=== PATIENT | female | born 1955 | race Caucasian/White ===

== ENCOUNTER 2017-08-13 12:42 | Inpatient (IN) | payer MEDICARE ==
[~2017-08-13] VITALS: Ht 165.1 cm; Wt 151.6 kg
[~2017-08-13 12:42] MED LIST: HYDR-3535 PO; PRED20 PO; [UNRECOGNIZED DRUG - CODE] TOP
[2017-08-13 12:44] VITALS: BP 186/127; PULSE 92; RESP 22; TEMP 102.9; O2SAT 96
[2017-08-13] MEDS ORDERED: SODIUM CHLOR 0.9% 1000 ML INJ 1,000 ML IV ONE ×3 (13:00)
[2017-08-13] MEDS ORDERED: ACETAMINOPHEN 325 MG TAB PO ONE (13:00)
--- NOTE | 2017-08-13 13:29 | PD ---
HPI Chief Complaint: Skin Problem Time Seen by Provider: 12:59 Travel History International Travel<30 days: No Contact w/Intl Traveler<30days: No Traveled to known affect area: No History of Present Illness HPI 62 YO F with PMH of dementia, left ankle fracture, cellulitis of LLE presents to the ED for evaluation of redness, swelling and pain of the ankle. Uncertain onset. Patient states that she is ambulatory on the leg. She denies CP, palpitations, SOB, N/V, changes in bowel habits. Daughter is at bedside and helps to provide the history. Daughter states that the patient became febrile this morning. The patients daughter states that the patient saw a new primary care provider yesterday and was ordered to have an outpatient US. Daughter states that she is the patient's POA. PFSH Past Medical History Cancer: No Diminished Hearing: No Endocrine: No GERD: Yes Genitourinary: Yes (UTI) Immune Disorder: No Kidney Stones: Yes Musculoskeletal: Yes (CARPAL TUNNEL) Neurologic: No Psychiatric: No Reproductive: No Respiratory: Yes Pneumonia: Yes Sleep Apnea: Yes (CPAP) ?: Not Menopausal: Yes : 2 Para: 2 Miscarriage: 0 : 0 Past Surgical History Tonsillectomy: Yes Other Surgery: Yes Social History Alcohol Use: No Tobacco Use: Yes Substance Use: No Allergies-Medications (Allergen,Severity, Reaction): Coded Allergies: codeine (Unverified Allergy, Severe, RASH, 08/13/17) sulfamethoxazole (Unverified Allergy, Severe, Itching, 08/13/17) ITCHING, REDNESS, VOICE CHANGES, LIP SWELLING trimethoprim (Unverified Allergy, Severe, Itching, 08/13/17) ITCHING, REDNESS, VOICE CHANGES, LIP SWELLING penicillin G (Unverified Allergy, Mild, RASH, 08/13/17) Reported Meds & Prescriptions Reported Meds & Active Scripts Active Reported Aricept (Donepezil) 23 Mg Tab 23 Mg PO HS Do not split, crushed or chewed. Namenda (Memantine) 5 Mg Tab 5 Mg PO HS Vitamin B-12 (Cyanocobalamin) 1,000 Mcg Tab 1,000 Mcg PO DAILY Multiple Vitamin 1 Tab 1 Tab PO DAILY Review of Systems Except as stated in HPI: all other systems reviewed are Neg Physical Exam Narrative GENERAL: Morbidly obese, anxious, tearful white female in no acute distress. SKIN: Focused skin assessment warm/dry. There is an indurated area in the right wrist which measures about 2 cm in diameter. No fluctuance. No pointing or drainage. There is a zone of inflammation around it but no lymphangitis. HEAD: Normocephalic. EYES: No scleral icterus. No injection or drainage. NECK: Supple, trachea midline. No JVD or lymphadenopathy. CARDIOVASCULAR: Regular rate and rhythm without murmurs, gallops, or rubs. RESPIRATORY: Breath sounds equal bilaterally. No accessory muscle use. GASTROINTESTINAL: Abdomen soft, non-tender, nondistended. Active bowel sounds. MUSCULOSKELETAL: No cyanosis, or edema. FOCUSED LEFT LOWER EXTREMITY EXAM: 2+ DP pulse. Tender, warm erythema and edema of the lateral malleolus. Patient is able to wiggle the toes, and station intact light touch distally. BACK: Nontender without obvious deformity. No CVA tenderness. Data Data Last Documented VS Vital Signs Date Time Temp Pulse Resp B/P (MAP) Pulse Ox O2 Delivery O2 Flow Rate FiO2 08/13/17 13:40 97 Room Air 08/13/17 12:44 102.9 92 22 Orders Orders Sepsis Workup Initiated (08/13/17 ) Complete Blood Count With Diff (08/13/17 13:00) Comprehensive Metabolic Panel (08/13/17 13:00) Prothrombin Time / Inr (Pt) (08/13/17 13:00) Act Partial Throm Time (Ptt) (08/13/17 13:00) Lactic Acid Sepsis Protocol (08/13/17 13:00) Urinalysis - C+S If Indicated (08/13/17 13:00) Blood Culture (08/13/17 13:00) Wound Culture And Gram Stain (08/13/17 13:00) Chest, Single Ap (08/13/17 13:00) Blood Glucose (08/13/17 13:00) Ecg Monitoring (08/13/17 13:00) Iv Access Insert/Monitor (08/13/17 13:00) Oximetry (08/13/17 13:00) Oxygen Administration (08/13/17 13:00) Acetaminophen (Tylenol) (08/13/17 13:00) Sodium Chlor 0.9% 1000 Ml Inj (Ns 1000 M (08/13/17 13:00) Sodium Chlor 0.9% 1000 Ml Inj (Ns 1000 M (08/13/17 13:00) Sodium Chlor 0.9% 1000 Ml Inj (Ns 1000 M (08/13/17 13:00) Ankle, Complete (Glf7gpx) (08/13/17 13:17) Lorazepam Inj (Ativan Inj) (08/13/17 13:30) Vancomycin Inj (Vancomycin Inj) (08/13/17 13:50) Aztreonam Inj (Azactam Inj) (08/13/17 13:50) Metronidazole 500 Mg Inj (Flagyl 500 Mg (08/13/17 13:50) ^ Straight Catheter (08/13/17 14:28) Cath For Specimen (08/13/17 14:28) Us Leg Venous Doppler (08/13/17 14:43) Admit Order (Ed Use Only) (08/13/17 14:43) Labs Laboratory Tests Test 08/13/17 13:12 White Blood Count 15.0 TH/MM3 Red Blood Count 4.75 MIL/MM3 Hemoglobin 13.8 GM/DL Hematocrit 41.4 % Mean Corpuscular Volume 87.1 FL Mean Corpuscular Hemoglobin 29.1 PG Mean Corpuscular Hemoglobin Concent 33.4 % Red Cell Distribution Width 14.5 % Platelet Count 187 TH/MM3 Mean Platelet Volume 8.6 FL Neutrophils (%) (Auto) 83.2 % Lymphocytes (%) (Auto) 8.3 % Monocytes (%) (Auto) 7.2 % Eosinophils (%) (Auto) 0.9 % Basophils (%) (Auto) 0.4 % Neutrophils # (Auto) 12.5 TH/MM3 Lymphocytes # (Auto) 1.2 TH/MM3 Monocytes # (Auto) 1.1 TH/MM3 Eosinophils # (Auto) 0.1 TH/MM3 Basophils # (Auto) 0.1 TH/MM3 CBC Comment DIFF FINAL Differential Comment Prothrombin Time 9.7 SEC Prothromb Time International Ratio 1.0 RATIO Activated Partial Thromboplast Time 24.9 SEC Blood Urea Nitrogen 16 MG/DL Creatinine 0.81 MG/DL Random Glucose 117 MG/DL Total Protein 7.0 GM/DL Albumin 3.1 GM/DL Calcium Level 9.0 MG/DL Alkaline Phosphatase 81 U/L Aspartate Amino Transf (AST/SGOT) 14 U/L Alanine Aminotransferase (ALT/SGPT) 15 U/L Total Bilirubin 0.3 MG/DL Sodium Level 139 MEQ/L Potassium Level 4.1 MEQ/L Chloride Level 104 MEQ/L Carbon Dioxide Level 29.6 MEQ/L Anion Gap 5 MEQ/L Estimat Glomerular Filtration Rate 72 ML/MIN Lactic Acid Level 1.0 mmol/L [facility] Medical Decision Making Medical Screen Exam Complete: Yes Emergency Medical Condition: Yes Differential Diagnosis cellulitis versus osteomyelitis versus sepsis versus other Narrative Course 62 YO F with PMH of dementia, left ankle fracture, cellulitis of LLE presents to the ED for evaluation of redness, swelling and pain of the left lateral ankle. Uncertain onset. Patient is ambulatory on the leg. Daughter states that the patient became febrile this morning. The patients daughter states that the patient saw a new PCP yesterday and was ordered to have an outpatient US. Daughter states that she is the patient's POA. Temp 102.9. Pulse 92, BP 186/ 127, respiratory rate 22, O2 sats 96% on room air on presentation. Physical exam reveals a morbidly obese, anxious, tearful white female in NAD. There are cellulitic changes of the lateral malleolus of the left ankle. No fluctuance. Exam otherwise unremarkable. IV was established. Sepsis workup and fluid resuscitation was initiated. Patient was administered 2mg Ativan IV. 08/13/17 13:12 Total Protein 7.0, Albumin 3.1 L, Calcium Level 9.0, Alkaline Phosphatase 81, Aspartate Amino Transf (AST/SGOT) 14 L, Alanine Aminotransferase (ALT/SGPT) 15, Total Bilirubin 0.3 Lactic Acid: 1.0 UA: pending CXR: normal per radiology read. Ankle XR: Nonspecific soft tissue swelling around the ankle. Evidence of previous internal fracture with hardware intact. No evidence of bony erosion or destruction to indicate osteomyelitis. Ultrasound left lower extremity: At the DVT. No significant change compared to prior study per radiology read. Blood cultures were drawn. Patient was administered aztreonam, vancomycin, Flagyl. Discussed the workup with the patient's daughter. She is agreeable to admission. I spoke with Dr. Haji who agrees to accept the patient to medicine service. Please see medicine notes for disposition. Sepsis Criteria SIRS Criteria (2 or more): Temp > 100.9 or < 96.8, Heart rate over 90 Sepsis Criteria (SIRS+source): Infect source susp/known Gina Huerta Aug 13, 2017 13:29
[2017-08-13] MEDS ORDERED: LORazepam 2 MG/ML VIAL IV PUSH ONE (13:30)
[2017-08-13 13:40] VITALS: O2SAT 97
--- NOTE | 2017-08-13 13:43 | RADRPT ---
EXAM DATE/TIME: 08/13/2017 13:17 [facility] COMPARISON: No previous studies available for comparison. INDICATIONS : Fever. MEDICAL HISTORY : None. SURGICAL HISTORY : Ankle surgury. ENCOUNTER: Initial ACUITY: 1 day PAIN SCORE: 0/10 LOCATION: Bilateral chest FINDINGS: A single view of the chest demonstrates the lungs to be symmetrically aerated without evidence of mas s, infiltrate or effusion. The cardiomediastinal contours are unremarkable. Osseous structures are intact. CONCLUSION: Normal examination. Yasmany Christianson MD on August 13, 2017 at 13:42 Board Certified Radiologist. This report was verified electronically.
[2017-08-13] MEDS ORDERED: ARIC23TA PO (13:46)
[2017-08-13] MEDS ORDERED: MULTTAB67 PO (13:46)
[2017-08-13] MEDS ORDERED: VITA10002 PO (13:46)
[2017-08-13] MEDS ORDERED: NAME5TAB2 PO (13:46)
[2017-08-13 13:47] LABS: AUTOMATED NEUTROPHIL # 12.5 TH/MM3 (1.8-7.7); BASOPHIL # 0.1 TH/MM3 (0-0.2); BASOPHIL % 0.4 % (0.0-2.0); EOSINOPHIL # 0.1 TH/MM3 (0-0.4); EOSINOPHIL % 0.9 % (0.0-4.0); HEMATOCRIT 41.4 % (35.0-46.0); HEMOGLOBIN 13.8 GM/DL (11.6-15.3); LYMPH % 8.3 % (9.0-44.0); LYMPHOCYTE # 1.2 TH/MM3 (1.0-4.8); MEAN CELL VOLUME 87.1 FL (80.0-100.0); MEAN CORPUSCULAR HEMOGLOBIN 29.1 PG (27.0-34.0); MEAN CORPUSCULAR HGB CONC 33.4 % (32.0-36.0); MEAN PLATELET VOLUME 8.6 FL (7.0-11.0); MONO % 7.2 % (0.0-8.0); MONOCYTE # 1.1 TH/MM3 (0-0.9); NEUT % 83.2 % (16.0-70.0); PLATELET COUNT 187 TH/MM3 (150-450); RED BLOOD COUNT 4.75 MIL/MM3 (4.00-5.30); RED CELL DISTRIBUTION WIDTH 14.5 % (11.6-17.2)
--- NOTE | 2017-08-13 13:48 | RADRPT ---
EXAM DATE/TIME: 08/13/2017 13:26 [facility] COMPARISON: No previous studies available for comparison. INDICATIONS : Pain. MEDICAL HISTORY : None. SURGICAL HISTORY : Ankle surgery. ENCOUNTER: Initial ACUITY: 1 month PAIN SCORE: 10/10 LOCATION: Left Ankle. FINDINGS: Three view exam was performed of the left ankle. Patient status post previous internal fixation of th e distal fibula and medial malleolus. Hardware is intact. There is nonspecific soft tissue swelling a round the ankle. There is no evidence of any bony erosion or destruction to indicate osteomyelitis. T here is good alignment at the mortise joint. There are primary degenerative changes. There is a promi nent heel spur on the plantar surface of the calcaneus. There is no evidence of any subcutaneous emph ysema.. CONCLUSION: 1. Nonspecific soft tissue swelling around the ankle. 2. Evidence of previous internal fixation with hardware intact. 3. No evidence of bony erosion or destruction to indicate osteomyelitis. Drew Echeverria MD on August 13, 2017 at 13:45 Board Certified Radiologist. This report was verified electronically.
[2017-08-13] MEDS ORDERED: AZTREONAM INJ 2,000 MG in SODIUM CHLORIDE 0.9% INJ 100 ML IV STA (13:50)
[2017-08-13] MEDS ORDERED: metroNIDAZOLE 500 MG INJ 100 ML IV STA (13:50)
[2017-08-13] MEDS ORDERED: VANCOMYCIN INJ 1,000 MG in SODIUM CHLOR 0.9% 250 ML INJ 250 ML IV STA (13:50)
[2017-08-13 14:01] LABS: ALBUMIN 3.1 GM/DL (3.4-5.0); AST (GOT) 14 U/L (15-37); BICARBONATE 29.6 MEQ/L (21.0-32.0); BLOOD UREA NITROGEN 16 MG/DL (7-18); CHLORIDE 104 MEQ/L (98-107); CREATININE 0.81 MG/DL (0.50-1.00); GLOMERULAR FILTRATION RATE 72 ML/MIN (>89); GLUCOSE,RANDOM 117 MG/DL (74-106); SODIUM (NA) 139 MEQ/L (136-145)
[2017-08-13 14:02] LABS: PROTHROMBIN TIME - PATIENT 9.7 SEC (9.8-11.6)
[2017-08-13 14:04] LABS: ALKALINE PHOSPHATASE 81 U/L (45-117); ALT (GPT) 15 U/L (10-53); TOTAL BILIRUBIN ADULT 0.3 MG/DL (0.2-1.0)
--- NOTE | 2017-08-13 14:41 | HHI.HP ---
[facility] Primary Care Physician Gaby Moreno M.D. Admission Diagnosis Left ankle cellulitis. Diagnoses: Chief Complaint: Left ankle swelling, pain, redness. Travel History International Travel<30 Days: No Contact w/Intl Traveler <30 Da: No Traveled to Known Affected Are: No Sepsis Criteria SIRS Criteria (2 or more): Temp > 100.9 or < 96.8, Heart rate over 90, RR > 20 or PaCO2 < 32, WBC > 08765, < 4000 or > 10% bands Sepsis Criteria (SIRS+source): Infect source susp/known Severe Sepsis (+one): Lactate >2 Criteria Outcome: Meets SIRS criteria, Meets sepsis criteria, Meets severe sepsis criteria History of Present Illness History is obtained from patient's daughter who is also POA. Ms. Briscoe is a 62 year old female with a history of left ankle surgery, dementia who presented to the ED on 08/13/2017 due to erythema, swelling, pain that started getting worse since this morning. She underwent left ankle surgery with some hardware placement back in January 2017. She returned home after rehab. Approximately two months prior to this admission, she had some swelling and erythema of her left ankle. She went to an outside hospital where she received abx. However, she did not tolerate her abx well and thus her symptoms never really resolved. She went to PCP who recommended that an ultrasound study is done before considering abx. Patient's daughter does not know the result of the ultrasound study. However, this morning, patient's left ankle was more painful, erythematous which led to this admission. Patient is not able to participate in the interview in any meaningful way due to dementia. However, she denies any chest pain, cough, abdominal pain, SOB. She denies any changes in bowel or bladder habits. On arrival, BP 186/127, HR 92, RR 22, Temp 102.9F, Pulse ox 96% on room air. WBC 15.0K, Lactic acid 1.0 and repeat 2.8 and subsequently 1.4. Patient received Aztreonam, Vancomycin and Flagyl in the ED. Patient has allergy to PCN - however, extent of allergy is not known. Review of Systems ROS Limitations: Clinical Condition, Poor Historian Endocrine: DENIES: Heat/cold intolerance Except as stated in HPI: all other systems reviewed are Neg Past Family Social History Past Medical History Dementia Left ankle fracture Past Surgical History Internal fixation of left ankle Carpal tunnel surgery Tonsillectomy. Reported Medications Aricept (Donepezil) 23 Mg Tab 23 Mg PO HS Do not split, crushed or chewed. Namenda (Memantine) 5 Mg Tab 5 Mg PO HS Vitamin B-12 (Cyanocobalamin) 1,000 Mcg Tab 1,000 Mcg PO DAILY Multiple Vitamin 1 Tab 1 Tab PO DAILY Allergies: Coded Allergies: codeine (Unverified Allergy, Severe, RASH, 08/13/17) sulfamethoxazole (Unverified Allergy, Severe, Itching, 08/13/17) ITCHING, REDNESS, VOICE CHANGES, LIP SWELLING trimethoprim (Unverified Allergy, Severe, Itching, 08/13/17) ITCHING, REDNESS, VOICE CHANGES, LIP SWELLING penicillin G (Unverified Allergy, Mild, RASH, 08/13/17) Family History Mother - Alzheimer's. Social History Quit smoking in January 2017. Does not drink alcohol or use any illicit drugs. Physical Exam Vital Signs Vital Signs Date Time Temp Pulse Resp B/P (MAP) Pulse Ox O2 Delivery O2 Flow Rate FiO2 08/13/17 13:40 97 Room Air 08/13/17 12:44 102.9 92 22 186/127 (146) 96 Physical Exam GENERAL: Alert, significant dementia, NAD. Morbidly obese. SKIN: No rashes, ecchymoses or lesions. Warm and dry. HEAD: Atraumatic. Normocephalic. No temporal or scalp tenderness. EYES: Pupils equal round and reactive. No injection or drainage. ENT: Nose without bleeding, purulent drainage or septal hematoma. Airway patent. NECK: Trachea midline. No lymphadenopathy. Supple, nontender, no meningeal signs. CARDIOVASCULAR: Regular rate and rhythm without murmurs, gallops, or rubs. No JVD. RESPIRATORY: Clear to auscultation. Breath sounds equal bilaterally. No wheezes , rales, or rhonchi. GASTROINTESTINAL: Abdomen soft, non-tender, nondistended. No guarding. MUSCULOSKELETAL: Extremities without clubbing, cyanosis. Left ankle erythema, swelling noted. Right forearm has a small abscess as well. NEUROLOGICAL: Awake and alert. Cranial nerves II through XII intact. No focal neurological deficits. Normal speech. Laboratory Laboratory Tests Test 08/13/17 13:12 White Blood Count 15.0 Red Blood Count 4.75 Hemoglobin 13.8 Hematocrit 41.4 Mean Corpuscular Volume 87.1 Mean Corpuscular Hemoglobin 29.1 Mean Corpuscular Hemoglobin Concent 33.4 Red Cell Distribution Width 14.5 Platelet Count 187 Mean Platelet Volume 8.6 Neutrophils (%) (Auto) 83.2 Lymphocytes (%) (Auto) 8.3 Monocytes (%) (Auto) 7.2 Eosinophils (%) (Auto) 0.9 Basophils (%) (Auto) 0.4 Neutrophils # (Auto) 12.5 Lymphocytes # (Auto) 1.2 Monocytes # (Auto) 1.1 Eosinophils # (Auto) 0.1 Basophils # (Auto) 0.1 CBC Comment DIFF FINAL Differential Comment Prothrombin Time 9.7 Prothromb Time International Ratio 1.0 Activated Partial Thromboplast Time 24.9 Blood Urea Nitrogen 16 Creatinine 0.81 Random Glucose 117 Total Protein 7.0 Albumin 3.1 Calcium Level 9.0 Alkaline Phosphatase 81 Aspartate Amino Transf (AST/SGOT) 14 Alanine Aminotransferase (ALT/SGPT) 15 Total Bilirubin 0.3 Sodium Level 139 Potassium Level 4.1 Chloride Level 104 Carbon Dioxide Level 29.6 Anion Gap 5 Estimat Glomerular Filtration Rate 72 Lactic Acid Level 1.0 Date/Time Source Procedure Growth Status 08/13/17 13:12 Blood Peripheral Aerobic Blood Culture Pending Received 08/13/17 13:12 Blood Peripheral Anaerobic Blood Culture Pending Received 08/13/17 13:00 Wound Leg Gram Stain Pending Received 08/13/17 13:00 Wound Leg Wound Culture Pending Received Result Diagram: 08/13/17 1312 08/13/17 1312 Imaging CXR, Left lower ext doppler negative. Left ankle xray shows swelling around ankle. Caprini VTE Risk Assessment Caprini VTE Risk Assessment: Mod/High Risk (score >= 2) Caprini Risk Assessment Model Point Value = 1 Point Value = 2 Point Value = 3 Point Value = 5 Age 41-60 Minor surgery BMI > 25 kg/m2 Swollen legs Varicose veins or History of unexplained or recurrent spontaneous Oral contraceptives or hormone replacement Sepsis (< 1 month) Serious lung disease, including pneumonia (< 1 month) Abnormal pulmonary function Acute myocardial infarction Congestive heart failure (< 1 month) History of inflammatory bowel disease Medical patient at bed rest Age 61-74 Arthroscopic surgery Major open surgery (> 45 min) Laparoscopic surgery (> 45 min) Malignancy Confined to bed (> 72 hours) Immobilizing plaster cast Central venous access Age >= 75 History of VTE Family history of VTE Factor V Leiden Prothrombin [id number] Lupus anticoagulant Anticardiolipin antibodies Elevated serum homocysteine Heparin-induced thrombocytopenia Other congenital or acquired thrombophilia Stroke (< 1 month) Elective arthroplasty Hip, pelvis, or leg fracture Acute spinal cord injury (< 1 month) Prophylaxis Regimen Total Risk Factor Score Risk Level Prophylaxis Regimen 0-1 Low Early ambulation 2 Moderate Order ONE of the following: *Sequential Compression Device (SCD) *Heparin 5000 units SQ BID 3-4 Higher Order ONE of the following medications: *Heparin 5000 units SQ TID *Enoxaparin/Lovenox 40 mg SQ daily (WT < 150 kg, CrCl > 30 mL/min) *Enoxaparin/Lovenox 30 mg SQ daily (WT < 150 kg, CrCl > 10-29 mL/min) *Enoxaparin/Lovenox 30 mg SQ BID (WT < 150 kg, CrCl > 30 mL/min) AND/OR *Sequential Compression Device (SCD) 5 or more Highest Order ONE of the following medications: *Heparin 5000 units SQ TID (Preferred with Epidurals) *Enoxaparin/Lovenox 40 mg SQ daily (WT < 150 kg, CrCl > 30 mL/min) *Enoxaparin/Lovenox 30 mg SQ daily (WT < 150 kg, CrCl > 10-29 mL/min) *Enoxaparin/Lovenox 30 mg SQ BID (WT < 150 kg, CrCl > 30 mL/min) AND *Sequential Compression Device (SCD) Assessment and Plan Problem List: (1) Severe sepsis ICD Code: A41.9 - Sepsis, unspecified organism; R65.20 - Severe sepsis without septic shock (2) Left leg cellulitis ICD Code: L03.116 - Cellulitis of left lower limb (3) Dementia ICD Code: F03.90 - Unspecified dementia without behavioral disturbance (4) Skin abscess ICD Code: L02.91 - Cutaneous abscess, unspecified Assessment and Plan Ms. Briscoe is a 62 year old female with a history of dementia, previous left ankle surgery who is admitted to the hospital on 08/13/2017 due to left lower extremity cellulitis and severe sepsis. - Severe sepsis (WBC 15.0K, HR 92, RR 22, Temp 102.9, known infection cellulitis , Lactic acid 2.8). - Left lower extremity cellulitis - Right forearm skin abscess - Patient received Aztreonam, Vancomycin and Flagyl in the ED. - Will continue patient on Aztreonam and Vancomycin. Pt or daughter is unable to specify extent of PCN allergy. - Lactic acid 1.0 --> 2.8 --> 1.4. - Will repeat BMP, CBC in the AM. Blood cx pending. - Radiological studies reviewed. Ankle x-ray shows swelling. - Dementia - Will continue home medications - Aricept, Namenda. Full code. Lovenox. Physician Certification 2 Midnight Certification Type: Admission for Inpatient Services Order for Inpatient Services The services are ordered in accordance with Medicare regulations or non- Medicare payer requirements, as applicable. In the case of services not specified as inpatient-only, they are appropriately provided as inpatient services in accordance with the 2-midnight benchmark. Estimated LOS (days): 2 days is the estimated time the patient will need to remain in the hospital, assuming treatment plan goals are met and no additional complications. Post-Hospital Plan: Home Victoria Haji DO Aug 13, 2017 14:41
[2017-08-13] MEDS ORDERED: MAGNESIUM HYDROXIDE SUSP 30 ML CUP PO PRN (14:45)
[2017-08-13] MEDS ORDERED: SODIUM CHLORIDE 0.9% FLUSH 10 ML FLUSH IV FLUSH PRN (14:45)
[2017-08-13] MEDS ORDERED: LACTULOSE SYRUP 20 GM/30 ML CUP PO PRN (14:45)
[2017-08-13] MEDS ORDERED: NALOXONE HCL 0.4 MG/ML AMP IV PUSH PRN (14:45)
[2017-08-13] MEDS ORDERED: BISACODYL 10 MG SUPP RECTAL PRN (14:45)
[2017-08-13] MEDS ORDERED: ONDANSETRON HCL 4 MG/2 ML VIAL IVP PRN (14:45)
[2017-08-13] MEDS ORDERED: SENNOSIDES 8.6 MG TAB PO PRN (14:45)
[2017-08-13 15:27] VITALS: BP 124/53; PULSE 84; RESP 18; TEMP 97.9; O2SAT 97
--- NOTE | 2017-08-13 15:37 | RADRPT ---
EXAM DATE/TIME: 08/13/2017 15:16 [facility] COMPARISON: US LEG LEFT VENOUS DOPPLER, April 08, 2009, 17:02. INDICATIONS : Left leg swelling. MEDICAL HISTORY : Gastroesophageal reflux disease. Pneumonia. Sleep apnea. Kidney stones. Urinary tract infection. SURGICAL HISTORY : Tonsillectomy. Carpal tunnel syndrome. ENCOUNTER: Subsequent ACUITY: 1 day PAIN SCORE: 4/10 LOCATION: Left leg. TECHNIQUE: Venous ultrasound of the leg was performed from the inguinal ligament to the proximal calf. Real-john e, color Doppler and spectral tracing, compression and augmentation techniques were used. FINDINGS: There is normal compressibility of the deep venous system from the inguinal region to the proximal ca lf. No echogenic clot is seen in the lumen of the common femoral, femoral, popliteal, and posterior tibial veins. There is a normal response of the venous system to proximal and distal augmentation an d respiration. CONCLUSION: No evidence of DVT. No significant change compared to the prior study. Drew Echeverria MD on August 13, 2017 at 15:36 Board Certified Radiologist. This report was verified electronically.
[2017-08-13 16:00] VITALS: BP_SYST 140; BP_SYST 153; BP_DIAS 113; BP_DIAS 80; PULSE 90; RESP 18; TEMP 97.1; O2SAT 97
[2017-08-13] MEDS: ENOXAPARIN SODIUM 40 MG/0.4 ML SYRINGE SQ SCH (17:18)
[2017-08-13] MEDS ORDERED: Vancomycin Consult Pharmacy 1 EA OTHER SCH (18:30)
[2017-08-13 19:22] LABS: LACTIC ACID SEPSIS PROTOCOL 2.8 mmol/L (0.4-2.0)
[2017-08-13 20:00] VITALS: BP 120/56; PULSE 134; RESP 20; TEMP 98.7; O2SAT 94
[2017-08-13] MEDS: VANCOMYCIN 1,500 MG/NS 500 ML IV ONE ×4 (20:00→22:13)
[2017-08-13] MEDS: SODIUM CHLORIDE 0.9% FLUSH 10 ML FLUSH IV FLUSH SCH (21:00)
[2017-08-13] MEDS: DONEPEZIL HCL 23 MG TAB PO SCH (21:00)
[2017-08-13] MEDS: MEMANTINE HCL 5 MG TAB PO SCH (21:42)
[2017-08-13 22:46] VITALS: PULSE 133
[2017-08-14] VITALS (11 sets, daily range): BP systolic 115–144; BP diastolic 52–77; PULSE 80–134; RESP 18–22; TEMP 98.2–101.2; O2SAT 93–97
[2017-08-14] MEDS: AZTREONAM INJ 2,000 MG in SODIUM CHLORIDE 0.9% INJ 100 ML IV SCH ×2 (00:30→08:56)
[2017-08-14] MEDS ORDERED: METOPROLOL TARTRATE 25 MG TAB PO ONE (01:45)
[2017-08-14] MEDS ORDERED: MORPHINE SULFATE 2 MG/ML INJ IV PUSH ONE (01:45)
[2017-08-14] MEDS: ACETAMINOPHEN 325 MG TAB PO PRN ×2 (01:51→21:55)
[2017-08-14] MEDS ORDERED: ACETAMINOPHEN/HYDROcodone 325 MG/5 MG TAB PO ONE (02:00)
[2017-08-14 07:25] LABS: ALBUMIN 2.5 GM/DL (3.4-5.0); ALKALINE PHOSPHATASE 67 U/L (45-117); ALT (GPT) 10 U/L (10-53); AST (GOT) 16 U/L (15-37); BICARBONATE 27.5 MEQ/L (21.0-32.0); BLOOD UREA NITROGEN 15 MG/DL (7-18); CALCIUM 8.3 MG/DL (8.5-10.1); CHLORIDE 106 MEQ/L (98-107); CREATININE 0.83 MG/DL (0.50-1.00); GLOMERULAR FILTRATION RATE 70 ML/MIN (>89); GLUCOSE,RANDOM 122 MG/DL (74-106); SODIUM (NA) 139 MEQ/L (136-145); TOTAL BILIRUBIN ADULT 0.5 MG/DL (0.2-1.0); TOTAL PROTEIN 6.1 GM/DL (6.4-8.2)
[2017-08-14] MEDS: MULTIVITAMIN TAB PO SCH (09:05)
[2017-08-14] MEDS: CYANOCOBALAMIN 1,000 MCG TAB PO SCH (09:05)
[2017-08-14 10:36] LABS: AUTOMATED NEUTROPHIL # 15.4 TH/MM3 (1.8-7.7); BASOPHIL % 0.2 % (0.0-2.0); HEMATOCRIT 37.2 % (35.0-46.0); HEMOGLOBIN 12.5 GM/DL (11.6-15.3); LYMPH % 6.5 % (9.0-44.0); LYMPHOCYTE # 1.1 TH/MM3 (1.0-4.8); MEAN CELL VOLUME 85.8 FL (80.0-100.0); MEAN CORPUSCULAR HGB CONC 33.7 % (32.0-36.0); MEAN PLATELET VOLUME 8.7 FL (7.0-11.0); MONO % 3.7 % (0.0-8.0); MONOCYTE # 0.6 TH/MM3 (0-0.9); NEUT % 89.6 % (16.0-70.0); PLATELET COUNT 169 TH/MM3 (150-450); RED BLOOD COUNT 4.33 MIL/MM3 (4.00-5.30); RED CELL DISTRIBUTION WIDTH 14.8 % (11.6-17.2); WHITE BLOOD COUNT 17.2 TH/MM3 (4.0-11.0)
[2017-08-14] MEDS ORDERED: ACETAMINOPHEN/HYDROcodone 325 MG/7.5 MG TAB PO PRN (11:00)
--- NOTE | 2017-08-14 13:13 | PD.CONS ---
History of Present Illness Service Infectious Disease Consult Requested By Dr Griselda Haji Reason for Consult Evaluate patient with left lower extremity cellulitis, and bacteremia Primary Care Physician Gaby Moreno M.D. Diagnoses: History of Present Illness A seen and examined. Records reviewed. Patient is a 62 y/o obese female, juvenal to the hospital for evaluation of worsening redness, pain and swelling in her LLE. She has had prior fracture of her ankle and had repair, done in another facility. She reportedly has been having problem with redness, swelling and pain in the last 2 months on and off. She has been to another facility and she was given antibiotics but never completed due to intolerance and some side effects. She was seen by her primary MD and wanted an US done. Patient however got worse and was taken her [place] [facility] There was no mention of any other accompanying symptoms. Since presentation to [facility], she had fever up to 102+, WBC elevated, US showed no DVT. Xray of ankle showed the hardware, soft tissue swelling but no bony changes. 2 BC done in ED are now reported as growing Gm (+) cocci in pairs and chains. Infectious Disease consultation has been requested to evaluate patient with cellulitis LLE with hardware, and has bacteremia. Review of Systems ROS Limitations: Clinical Condition, Poor Historian (Has known dementia) Past Family Social History Allergies: Coded Allergies: codeine (Unverified Allergy, Severe, RASH, 08/13/17) sulfamethoxazole (Unverified Allergy, Severe, Itching, 08/13/17) ITCHING, REDNESS, VOICE CHANGES, LIP SWELLING trimethoprim (Unverified Allergy, Severe, Itching, 08/13/17) ITCHING, REDNESS, VOICE CHANGES, LIP SWELLING penicillin G (Unverified Allergy, Mild, RASH, 08/13/17) Past Medical History Dementia Left ankle fracture Past Surgical History Internal fixation of left ankle Carpal tunnel surgery Tonsillectomy. Active Ordered Medications Current Medications Medications (Trade) Dose Ordered Sig/Keyanna Route Start Time Stop Time Status Last Admin (NS Flush) 2 ml UNSCH PRN IV FLUSH 08/13/17 14:45 (NS Flush) 2 ml BID IV FLUSH 08/13/17 21:00 08/13/17 21:00 (Tylenol) 650 mg Q4H PRN PO 08/13/17 14:45 (Zofran Inj) 4 mg Q6H PRN IVP 08/13/17 14:45 (Lovenox Inj) 40 mg Q24H SQ 08/13/17 15:00 08/13/17 17:18 (Narcan Inj) 0.4 mg UNSCH PRN IV PUSH 08/13/17 14:45 (Milk Of Magnesia Liq) 30 ml Q12H PRN PO 08/13/17 14:45 (Senokot) 17.2 mg Q12H PRN PO 08/13/17 14:45 (Dulcolax Supp) 10 mg DAILY PRN RECTAL 08/13/17 14:45 (Lactulose Liq) 30 ml DAILY PRN PO 08/13/17 14:45 (Vitamin B12) 1,000 mcg DAILY PO 08/14/17 09:00 08/14/17 09:05 (Aricept) 23 mg HS PO 08/13/17 21:00 08/13/17 21:00 (Namenda) 5 mg HS PO 08/13/17 21:00 08/13/17 21:42 (Theragran) 1 tab DAILY PO 08/14/17 09:00 08/14/17 09:05 Pharmacy Profile Note 0 ml @ 0 mls/hr UNSCH OTHER 08/13/17 18:30 Aztreonam 2000 mg/ Sodium Chloride 100 ml @ 200 mls/hr Q8H IV 08/14/17 01:00 08/14/17 08:56 ([place] 7.5-325 Mg) 1 tab Q6H PRN PO 08/14/17 11:00 Family History Unobtainable Social History Patient lives at home with daughter Per record, she was independent, with walking and eating Quit smoking in January 2017. Does not drink alcohol or use any illicit drugs. Physical Exam Vital Signs Vital Signs Date Time Temp Pulse Resp B/P (MAP) Pulse Ox O2 Delivery O2 Flow Rate FiO2 08/14/17 10:32 95 08/14/17 08:39 Room Air 08/14/17 08:03 98.9 95 22 118/57 (77) 97 08/14/17 08:00 98 08/14/17 04:00 99.6 118 19 115/66 (82) 94 08/14/17 04:00 Room Air 08/14/17 04:00 126 08/14/17 00:04 98.2 132 20 144/77 (99) 94 08/14/17 00:00 Room Air 08/14/17 00:00 134 08/13/17 22:46 133 08/13/17 20:00 98.7 134 20 120/56 (77) 94 08/13/17 20:00 Room Air 08/13/17 16:00 97.1 90 18 153/113 (126) 97 140/80 (100) 08/13/17 15:27 97.9 84 18 124/53 (76) 97 Room Air 08/13/17 13:40 97 Room Air Physical Exam GENERAL: Patient is a morbidly obese, well-developed patient, awake and alert , not in respiratory distress. She is confused. SKIN: Warm and dry. No generalized rash, no ecchymoses and no evidence of embolic lesions. HEAD: Atraumatic. Normocephalic. No temporal wasting, or tenderness. EYES: [place] conjunctiva. No petechia or hemorrhage. Pupils equal, round and reactive to light. Extraocular movements full and intact. No scleral icterus. No injection or drainage. EARS, NOSE AND THROAT: Nose without bleeding or purulent nasal discharge. No sinus tenderness. Mucous membranes pink and moist. No oral lesions noted. NECK: Trachea midline. Supple and not tender, no meningeal signs CARDIOVASCULAR: Regular rate and rhythm. Soft heart sounds. RESPIRATORY: Clear to auscultation. Breath sounds equal bilaterally. No rales , wheezing or rhonchi. Decreased at bases ABDOMEN: Soft, obese, non-tender, nondistended. Bowel sounds present and normoactive. No guarding. No rebound. EXTREMITIES: No clubbing, cyanosis. LLE - has blanching erythema from below knee to the L foot, with swelling and warmth. There is no pain with movement at ankle joint. She has healed incisions and no open wound noted. No calf tenderness. Well perfused and warm. NEUROLOGICAL: Awake and alert. Grossly non-focal PSYCHIATRIC: calm and cooperative. LINE: No evidence of infection Laboratory Laboratory Tests Test 08/13/17 13:12 08/13/17 18:49 08/13/17 21:23 08/14/17 06:14 White Blood Count 15.0 Red Blood Count 4.75 Hemoglobin 13.8 Hematocrit 41.4 Mean Corpuscular Volume 87.1 Mean Corpuscular Hemoglobin 29.1 Mean Corpuscular Hemoglobin Concent 33.4 Red Cell Distribution Width 14.5 Platelet Count 187 Mean Platelet Volume 8.6 Neutrophils (%) (Auto) 83.2 Lymphocytes (%) (Auto) 8.3 Monocytes (%) (Auto) 7.2 Eosinophils (%) (Auto) 0.9 Basophils (%) (Auto) 0.4 Neutrophils # (Auto) 12.5 Lymphocytes # (Auto) 1.2 Monocytes # (Auto) 1.1 Eosinophils # (Auto) 0.1 Basophils # (Auto) 0.1 CBC Comment DIFF FINAL Differential Comment Prothrombin Time 9.7 Prothromb Time International Ratio 1.0 Activated Partial Thromboplast Time 24.9 Blood Urea Nitrogen 16 15 Creatinine 0.81 0.83 Random Glucose 117 122 Total Protein 7.0 6.1 Albumin 3.1 2.5 Calcium Level 9.0 8.3 Alkaline Phosphatase 81 67 Aspartate Amino Transf (AST/SGOT) 14 16 Alanine Aminotransferase (ALT/SGPT) 15 10 Total Bilirubin 0.3 0.5 Sodium Level 139 139 Potassium Level 4.1 4.1 Chloride Level 104 106 Carbon Dioxide Level 29.6 27.5 Anion Gap 5 6 Estimat Glomerular Filtration Rate 72 70 Lactic Acid Level 1.0 2.8 1.4 Test 08/14/17 10:00 White Blood Count 17.2 Red Blood Count 4.33 Hemoglobin 12.5 Hematocrit 37.2 Mean Corpuscular Volume 85.8 Mean Corpuscular Hemoglobin 29.0 Mean Corpuscular Hemoglobin Concent 33.7 Red Cell Distribution Width 14.8 Platelet Count 169 Mean Platelet Volume 8.7 Neutrophils (%) (Auto) 89.6 Lymphocytes (%) (Auto) 6.5 Monocytes (%) (Auto) 3.7 Eosinophils (%) (Auto) 0.0 Basophils (%) (Auto) 0.2 Neutrophils # (Auto) 15.4 Lymphocytes # (Auto) 1.1 Monocytes # (Auto) 0.6 Eosinophils # (Auto) 0.0 Basophils # (Auto) 0.0 CBC Comment DIFF FINAL Differential Comment Date/Time Source Procedure Growth Status 08/13/17 13:12 Blood Peripheral Aerobic Blood Culture - Preliminary Group A Beta Strep Resulted 08/13/17 13:12 Anaerobic Blood Culture - Preliminary Gram Positive Cocci Resulted 08/13/17 13:00 Wound Leg Gram Stain - Final Resulted 08/13/17 13:00 Wound Leg Wound Culture Pending Resulted Result Diagram: 08/14/17 1000 08/14/17 0614 Imaging RADIOLOGY STUDIES/FILMS REVIEWED Lower Extremity Ultrasound 08/13/17 1443 Signed Impressions: Service Date/Time: Sunday, August 13, 2017 15:16 - CONCLUSION: No evidence of DVT. No significant change compared to the prior study. Drew Echeverria MD Ankle X-Ray 08/13/17 1317 Signed Impressions: Service Date/Time: Sunday, August 13, 2017 13:26 - CONCLUSION: 1. Nonspecific soft tissue swelling around the ankle. 2. Evidence of previous internal fixation with hardware intact. 3. No evidence of bony erosion or destruction to indicate osteomyelitis. Drew Echeverria MD Chest X-Ray 08/13/17 1300 Signed Impressions: Service Date/Time: Sunday, August 13, 2017 13:17 - CONCLUSION: Normal examination. Yasmany Christianson MD Assessment and Plan Assessment and Plan IMPRESSION Sepsis with GPC in pairs and chains, C/W Strep Cellulitis LLE, no open wound, incisions well healed, no pain in movement of ankle, no bony erosion on xray - she does have hardware but clinically does not seem to be involved, and surely has potential for seeding (+) wound C/S leg - no wound present, and this represents skin chelsea Dementia RECOMMENDATION Stop Azactam Continue Vanco for now for Enterococcal coverage Add Ancef for better Strep coverage Repeat BC If persistent (+) BC, will need further work-up of her bacteremia Follow C/S Follow temps Monitor LLE Monitor progress I will determine course of Rx once workup and cultures available I will follow along with you Thank you for this consultation Discussed Condition With D/W RN D/W Dr Haji (HEPAS) Shara Frey MD Aug 14, 2017 13:13
--- NOTE | 2017-08-14 13:26 | HHI.PR ---
Subjective Remarks Follow-up for sepsis, cellulitis of left lower extremity, bacteremia. Patient has significant dementia. Unable to obtain much information. However she complains of no acute concerns. No fever or chills. Objective Vitals Vital Signs Date Time Temp Pulse Resp B/P (MAP) Pulse Ox O2 Delivery O2 Flow Rate FiO2 08/14/17 12:03 98.8 92 22 120/60 (80) 97 08/14/17 10:32 95 08/14/17 08:39 Room Air 08/14/17 08:03 98.9 95 22 118/57 (77) 97 08/14/17 08:00 98 08/14/17 04:00 99.6 118 19 115/66 (82) 94 08/14/17 04:00 Room Air 08/14/17 04:00 126 08/14/17 00:04 98.2 132 20 144/77 (99) 94 08/14/17 00:00 Room Air 08/14/17 00:00 134 08/13/17 22:46 133 08/13/17 20:00 98.7 134 20 120/56 (77) 94 08/13/17 20:00 Room Air 08/13/17 16:00 97.1 90 18 153/113 (126) 97 140/80 (100) 08/13/17 15:27 97.9 84 18 124/53 (76) 97 Room Air 08/13/17 13:40 97 Room Air I/O 08/13/17 08/13/17 08/13/17 08/14/17 08/14/17 08/14/17 07:00 15:00 23:00 07:00 15:00 23:00 Intake Total 3515 ml 1415 ml Balance 3515 ml 1415 ml Intake Oral 240 ml 800 ml IV Total 3275 ml 615 ml # Voids 2 3 # Bowel Movements 0 Result Diagram: 08/14/17 1000 08/14/17 0614 Imaging Last Impressions Lower Extremity Ultrasound 08/13/17 1443 Signed Impressions: Service Date/Time: Sunday, August 13, 2017 15:16 - CONCLUSION: No evidence of DVT. No significant change compared to the prior study. Drew Echeverria MD Ankle X-Ray 08/13/17 1317 Signed Impressions: Service Date/Time: Sunday, August 13, 2017 13:26 - CONCLUSION: 1. Nonspecific soft tissue swelling around the ankle. 2. Evidence of previous internal fixation with hardware intact. 3. No evidence of bony erosion or destruction to indicate osteomyelitis. Drew Echeverria MD Chest X-Ray 08/13/17 1300 Signed Impressions: Service Date/Time: Sunday, August 13, 2017 13:17 - CONCLUSION: Normal examination. Yasmany Christianson MD Objective Remarks GENERAL: Alert, NAD. SKIN: Warm and dry. HEAD: Normocephalic. EYES: No scleral icterus. No injection or drainage. NECK: Supple, trachea midline. No JVD or lymphadenopathy. CARDIOVASCULAR: Regular rate and rhythm without murmurs, gallops, or rubs. RESPIRATORY: Breath sounds equal bilaterally. No accessory muscle use. GASTROINTESTINAL: Abdomen soft, non-tender, nondistended. MUSCULOSKELETAL: No cyanosis, or edema. Left lower extremity erythematous below -knee. No significant tenderness. No drainage. BACK: Nontender without obvious deformity. No CVA tenderness. Procedures None A/P Problem List: (1) Severe sepsis ICD Code: A41.9 - Sepsis, unspecified organism; R65.20 - Severe sepsis without septic shock (2) Left leg cellulitis ICD Code: L03.116 - Cellulitis of left lower limb (3) Dementia ICD Code: F03.90 - Unspecified dementia without behavioral disturbance (4) Skin abscess ICD Code: L02.91 - Cutaneous abscess, unspecified Assessment and Plan Ms. Briscoe is a 62 year old female with a history of dementia, previous left ankle surgery who is admitted to the hospital on 08/13/2017 due to left lower extremity cellulitis and severe sepsis. - Severe sepsis (WBC 15.0K, HR 92, RR 22, Temp 102.9, known infection cellulitis , Lactic acid 2.8). - Left lower extremity cellulitis - Right forearm skin abscess - Bacteremia with GPC, Strep. - Patient received Aztreonam, Vancomycin and Flagyl in the ED. - Infectious disease consulted. Aztreonam discontinued and Ancef was added for strep coverage. - Lactic acid 1.0 --> 2.8 --> 1.4. - Radiological studies reviewed. Ankle x-ray shows swelling. - Dementia - Will continue home medications - Aricept, Namenda. Full code. Lovenox. Discussed extensively with infectious disease. Victoria Haji DO Aug 14, 2017 13:26
[2017-08-14] MEDS: SODIUM CHLORIDE 0.9% FLUSH 10 ML FLUSH IV FLUSH SCH ×2 (15:00→21:56)
[2017-08-14] MEDS: ceFAZolin 2 GM PREMIX 50 ML IV SCH ×2 (15:01→22:18)
[2017-08-14] MEDS: ENOXAPARIN SODIUM 40 MG/0.4 ML SYRINGE SQ SCH (15:01)
--- NOTE | 2017-08-14 15:26 | EKG ---
Date Performed: 08/14/2017 Time Performed: 08:43:08 PTAGE: 62 years EKG: Sinus rhythm WITH FREQUENT SUPRAVENTRICULAR PREMATURE COMPLEXES BORDERLINE RIGHT AXIS DEVIATION LOW QRS VOLTAGE A NTEROSEPTAL MYOCARDIAL INFARCTION , PROBABLY OLD Compared to previous tracing, supraventricular ectop y is more pronounced than previous, and R waves have replaced Q waves in the inferior leads ABNORMAL ECG PREVIOUS TRACING : 04/27/2001 09.30 DOCTOR: Thad Moreno Interpretating Date/Time 08/14/2017 15:25:37
[2017-08-14] MEDS: VANCOMYCIN INJ 2,000 MG in SODIUM CHLORID 0.9% 500 ML INJ 500 ML IV SCH (17:43)
[2017-08-14] MEDS: DONEPEZIL HCL 23 MG TAB PO SCH (21:55)
[2017-08-14] MEDS: MEMANTINE HCL 5 MG TAB PO SCH (21:55)
[2017-08-15] VITALS (14 sets, daily range): BP systolic 117–146; BP diastolic 56–80; PULSE 57–90; RESP 16–18; TEMP 97.3–99.1; O2SAT 95–97
[2017-08-15 05:32] LABS: CREATININE 0.72 MG/DL (0.50-1.00)
[2017-08-15] MEDS: ceFAZolin 2 GM PREMIX 50 ML IV SCH (05:54)
[2017-08-15] MEDS: SODIUM CHLORIDE 0.9% FLUSH 10 ML FLUSH IV FLUSH SCH ×2 (07:27→21:02)
[2017-08-15] MEDS: MULTIVITAMIN TAB PO SCH (08:24)
[2017-08-15] MEDS: CYANOCOBALAMIN 1,000 MCG TAB PO SCH (08:24)
[2017-08-15] MEDS: VANCOMYCIN INJ 2,000 MG in SODIUM CHLORID 0.9% 500 ML INJ 500 ML IV SCH (09:49)
--- NOTE | 2017-08-15 10:38 | HHI.IDPN ---
Subjective Subjective Remarks Patient is a 62 y/o obese female, juvenal to the hospital for evaluation of worsening redness, pain and swelling in her LLE. She has had prior fracture of her ankle and had repair, done in another facility. She reportedly has been having problem with redness, swelling and pain in the last 2 months on and off. She has been to another facility and she was given antibiotics but never completed due to intolerance and some side effects. She was seen by her primary MD and wanted an US done. Patient however got worse and was [place] [facility] There was no mention of any other accompanying symptoms. Since presentation [place] [facility] she had fever up to 102+, WBC elevated, US showed no DVT. Xray of ankle showed the hardware, soft tissue swelling but no bony changes. 2 BC done in ED are now reported as growing Gm (+) cocci in pairs and chains. Infectious Disease consultation has been requested to evaluate patient with cellulitis LLE with hardware, and has bacteremia. Notes reviewed Febrile last night Wants to go home, crying 2 BC with Group A Strep Antibiotics Current Medications Ancef Vancomycin Medications (Trade) Dose Ordered Sig/Keyanna Route Start Time Stop Time Status Last Admin (NS Flush) 2 ml UNSCH PRN IV FLUSH 08/13/17 14:45 (NS Flush) 2 ml BID IV FLUSH 08/13/17 21:00 08/15/17 07:27 (Tylenol) 650 mg Q4H PRN PO 08/13/17 14:45 08/14/17 21:55 (Zofran Inj) 4 mg Q6H PRN IVP 08/13/17 14:45 (Lovenox Inj) 40 mg Q24H SQ 08/13/17 15:00 08/14/17 15:01 (Narcan Inj) 0.4 mg UNSCH PRN IV PUSH 08/13/17 14:45 (Milk Of Magnesia Liq) 30 ml Q12H PRN PO 08/13/17 14:45 (Senokot) 17.2 mg Q12H PRN PO 08/13/17 14:45 (Dulcolax Supp) 10 mg DAILY PRN RECTAL 08/13/17 14:45 (Lactulose Liq) 30 ml DAILY PRN PO 08/13/17 14:45 (Vitamin B12) 1,000 mcg DAILY PO 08/14/17 09:00 08/15/17 08:24 (Aricept) 23 mg HS PO 08/13/17 21:00 08/14/17 21:55 (Namenda) 5 mg HS PO 08/13/17 21:00 08/14/17 21:55 (Theragran) 1 tab DAILY PO 08/14/17 09:00 08/15/17 08:24 Pharmacy Profile Note 0 ml @ 0 mls/hr UNSCH OTHER 08/13/17 18:30 ([place] 7.5-325 Mg) 1 tab Q6H PRN PO 08/14/17 11:00 Cefazolin Sodium/ Dextrose 50 ml @ 100 mls/hr Q8H IV 08/14/17 15:00 08/15/17 05:54 Vancomycin HCl 2000 mg/Sodium Chloride 520 ml @ 260 mls/hr Q18H IV 08/14/17 16:00 08/15/17 09:49 Miscellaneous Information SPECIFIC LAB TO BE EMIL... ONCE ONCE .XX 08/16/17 21:45 08/16/17 21:46 Lines PIV Past Medical History Dementia Left ankle fracture Past Surgical History Internal fixation of left ankle Carpal tunnel surgery Tonsillectomy. Allergies: Coded Allergies: codeine (Unverified Allergy, Severe, RASH, 08/13/17) sulfamethoxazole (Unverified Allergy, Severe, Itching, 08/13/17) ITCHING, REDNESS, VOICE CHANGES, LIP SWELLING trimethoprim (Unverified Allergy, Severe, Itching, 08/13/17) ITCHING, REDNESS, VOICE CHANGES, LIP SWELLING penicillin G (Unverified Allergy, Mild, RASH, 08/13/17) Objective . Vital Signs Date Time Temp Pulse Resp B/P (MAP) Pulse Ox O2 Delivery O2 Flow Rate FiO2 08/15/17 08:00 97.7 84 17 135/66 (89) 95 08/15/17 04:09 Room Air 08/15/17 04:00 81 08/15/17 04:00 98.2 57 18 146/69 (94) 97 08/15/17 00:41 99.1 08/15/17 00:00 88 08/15/17 00:00 Room Air 08/14/17 23:05 101.2 80 18 116/52 (73) 93 08/14/17 20:00 Room Air 08/14/17 20:00 95 08/14/17 19:29 100.4 90 18 136/63 (87) 94 Automatic Cuff 08/14/17 16:03 99.7 82 20 138/61 (86) 94 08/14/17 12:03 98.8 92 22 120/60 (80) 97 . Laboratory Tests Test 08/13/17 13:12 08/14/17 10:00 White Blood Count 15.0 TH/MM3 17.2 TH/MM3 Red Blood Count 4.75 MIL/MM3 4.33 MIL/MM3 Hemoglobin 13.8 GM/DL 12.5 GM/DL Hematocrit 41.4 % 37.2 % Mean Corpuscular Volume 87.1 FL 85.8 FL Mean Corpuscular Hemoglobin 29.1 PG 29.0 PG Mean Corpuscular Hemoglobin Concent 33.4 % 33.7 % Red Cell Distribution Width 14.5 % 14.8 % Platelet Count 187 TH/MM3 169 TH/MM3 Mean Platelet Volume 8.6 FL 8.7 FL Neutrophils (%) (Auto) 83.2 % 89.6 % Lymphocytes (%) (Auto) 8.3 % 6.5 % Monocytes (%) (Auto) 7.2 % 3.7 % Eosinophils (%) (Auto) 0.9 % 0.0 % Basophils (%) (Auto) 0.4 % 0.2 % Neutrophils # (Auto) 12.5 TH/MM3 15.4 TH/MM3 Lymphocytes # (Auto) 1.2 TH/MM3 1.1 TH/MM3 Monocytes # (Auto) 1.1 TH/MM3 0.6 TH/MM3 Eosinophils # (Auto) 0.1 TH/MM3 0.0 TH/MM3 Basophils # (Auto) 0.1 TH/MM3 0.0 TH/MM3 CBC Comment DIFF FINAL DIFF FINAL Differential Comment Laboratory Tests Test 08/13/17 13:12 08/13/17 18:49 08/13/17 21:23 08/14/17 06:14 Blood Urea Nitrogen 16 MG/DL 15 MG/DL Creatinine 0.81 MG/DL 0.83 MG/DL Random Glucose 117 MG/DL 122 MG/DL Total Protein 7.0 GM/DL 6.1 GM/DL Albumin 3.1 GM/DL 2.5 GM/DL Calcium Level 9.0 MG/DL 8.3 MG/DL Alkaline Phosphatase 81 U/L 67 U/L Aspartate Amino Transf (AST/SGOT) 14 U/L 16 U/L Alanine Aminotransferase (ALT/SGPT) 15 U/L 10 U/L Total Bilirubin 0.3 MG/DL 0.5 MG/DL Sodium Level 139 MEQ/L 139 MEQ/L Potassium Level 4.1 MEQ/L 4.1 MEQ/L Chloride Level 104 MEQ/L 106 MEQ/L Carbon Dioxide Level 29.6 MEQ/L 27.5 MEQ/L Anion Gap 5 MEQ/L 6 MEQ/L Estimat Glomerular Filtration Rate 72 ML/MIN 70 ML/MIN Lactic Acid Level 1.0 mmol/L 2.8 mmol/L 1.4 mmol/L Test 08/15/17 04:23 Creatinine 0.72 MG/DL Estimat Glomerular Filtration Rate 83 ML/MIN Microbiology Date/Time Source Procedure Growth Status 08/15/17 04:23 Blood Peripheral Aerobic Blood Culture Pending Resulted 08/15/17 04:23 Blood Peripheral Anaerobic Blood Culture - Final QNS - SEE AEROBE REPORT Resulted 08/14/17 14:30 Blood Peripheral Aerobic Blood Culture Pending Received 08/14/17 14:30 Blood Peripheral Anaerobic Blood Culture Pending Received 08/14/17 14:25 Blood Peripheral Aerobic Blood Culture Pending Received 08/14/17 14:25 Blood Peripheral Anaerobic Blood Culture Pending Received 08/13/17 13:12 Blood Peripheral Aerobic Blood Culture - Preliminary Group A Beta Strep Resulted 08/13/17 13:12 Anaerobic Blood Culture - Preliminary Gram Positive Cocci Resulted 08/13/17 13:00 Blood Peripheral Aerobic Blood Culture - Preliminary NO GROWTH IN 1 DAY Resulted 08/13/17 13:00 Anaerobic Blood Culture - Preliminary Gram Positive Cocci Resulted 08/13/17 13:00 Wound Leg Gram Stain - Final Complete 08/13/17 13:00 Wound Culture - Final S. Aureus [place] Group A Beta Strep Complete Imaging Last Impressions Lower Extremity Ultrasound 08/13/17 1443 Signed Impressions: Service Date/Time: Sunday, August 13, 2017 15:16 - CONCLUSION: No evidence of DVT. No significant change compared to the prior study. Drew Echeverria MD Ankle X-Ray 08/13/17 1317 Signed Impressions: Service Date/Time: Sunday, August 13, 2017 13:26 - CONCLUSION: 1. Nonspecific soft tissue swelling around the ankle. 2. Evidence of previous internal fixation with hardware intact. 3. No evidence of bony erosion or destruction to indicate osteomyelitis. Drew Echeverria MD Chest X-Ray 08/13/17 1300 Signed Impressions: Service Date/Time: Sunday, August 13, 2017 13:17 - CONCLUSION: Normal examination. Yasmany Christianson MD Physical Exam GENERAL: awake and alert, not in respiratory distress. SKIN: Warm and dry. No generalized rash, no ecchymoses and no evidence of embolic lesions. HEAD: Atraumatic. Normocephalic. No temporal wasting, or tenderness. EYES: [place] conjunctiva. No petechia or hemorrhage. Pupils equal, round and reactive to light. Extraocular movements full and intact. No scleral icterus. No injection or drainage. EARS, NOSE AND THROAT: Nose without bleeding or purulent nasal discharge. No sinus tenderness. Mucous membranes pink and moist. No oral lesions noted. NECK: Trachea midline. Supple and not tender, no meningeal signs CARDIOVASCULAR: Regular rate and rhythm. Soft heart sounds. RESPIRATORY: Clear to auscultation. Breath sounds equal bilaterally. No rales , wheezing or rhonchi. Decreased at bases ABDOMEN: Soft, obese, non-tender, nondistended. Bowel sounds present and normoactive. No guarding. No rebound. EXTREMITIES: No clubbing, cyanosis. LLE - has blanching erythema from below knee to the L foot, with swelling and warmth. There is no pain with movement at ankle joint. She has healed incisions and no open wound noted. No calf tenderness. Well perfused and warm. NEUROLOGICAL: Awake and alert. Grossly non-focal PSYCHIATRIC: calm and cooperative. LINE: No evidence of infection Assessment & Plan Remarks IMPRESSION Sepsis with Group A Strep Cellulitis LLE, no open wound, incisions well healed, no pain in movement of ankle, no bony erosion on xray - she does have hardware but clinically does not seem to be involved, and surely has potential for seeding (+) wound C/S leg - no wound present, and this represents skin [place] Dementia RECOMMENDATION Stop Vanco Change Ancef to Rocephin Follow C/S Echo Monitor leg Follow temps Not ready for D/C Monitor progress I will determine course of Rx once workup and cultures available D/W Dr Griselda Haji (HEPAS) Shara Frey MD Aug 15, 2017 10:38
[2017-08-15] MEDS ORDERED: cefTRIAXone INJ 2,000 MG in SODIUM CHLORIDE 0.9% INJ 100 ML IV SCH (12:00)
[2017-08-15] MEDS: ENOXAPARIN SODIUM 40 MG/0.4 ML SYRINGE SQ SCH (14:57)
--- NOTE | 2017-08-15 17:18 | ECHRPT ---
Indication: EVALUATE FOR ENDOCARDITIS CONCLUSIONS Normal left ventricular size. Mild concentric left ventricular hypertrophy. The left ventricular systolic function is normal with an estimated ejection fraction in the range of 55-60%. The left atrial size is moderately dilated. The right atrial size is mildly dilated. Mild mitral valve regurgitation. Aortic valve sclerosis is present. BP: 135 / 66 HR: 84 Rhythm: Sinus MEASUREMENTS (Male / Female) Normal Values Technical Quality:Very technically difficult study 2D ECHO LV Diastolic Diameter PLAX 4.6 cm 4.2 - 5.9 / 3.9 - 5.3 cm LV Systolic Diameter PLAX 3.4 cm IVS Diastolic Thickness 1.2 cm 0.6 - 1.0 / 0.6 - 0.9 cm LVPW Diastolic Thickness 1.2 cm 0.6 - 1.0 / 0.6 - 0.9 cm LV Relative Wall Thickness 0.5 RV Internal Dim ED PLAX 3.6 cm LVOT Diameter 1.9 cm Aortic Root Diameter 3.1 cm LA Systolic Diameter LX 3.1 cm 3.0 - 4.0 / 2.7 - 3.8 cm M-MODE AV Cusp Separation MM 2.2 cm DOPPLER AV Peak Velocity 98.0 cm/s AV Peak Gradient 3.8 mmHg AV Mean Gradient 2.0 mmHg AV Velocity Time Integral 19.1 cm Mitral E Point Velocity 84.9 cm/s Mitral A Point Velocity 68.1 cm/s Mitral E to A Ratio 1.2 LV E' Lateral Velocity 9.5 cm/s Mitral E to LV E' Lateral Ratio 9.0 LV E' Septal Velocity 8.8 cm/s Mitral E to LV E' Septal Ratio 9.7 PV Peak Velocity 75.2 cm/s PV Peak Gradient 2.3 mmHg FINDINGS LEFT VENTRICLE Normal left ventricular size. Mild concentric left ventricular hypertrophy. The left ventricular systolic function is normal with an estimated ejection fraction in the range of 55-60%. RIGHT VENTRICLE The right ventricle was not well visualized. LEFT ATRIUM The left atrial size is moderately dilated. RIGHT ATRIUM The right atrial size is mildly dilated. ATRIAL SEPTUM The interatrial septum not well visualized. AORTA The aortic root and proximal ascending aorta are not well visualized. MITRAL VALVE Mild mitral valve regurgitation. AORTIC VALVE Aortic valve sclerosis is present. TRICUSPID VALVE The tricuspid valve is not well visualized. PULMONARY VALVE The pulmonary valve is not well visualized. VESSELS The inferior vena cava was not well visualized. PERICARDIUM No pericardial effusion. Olivia Walker MD, FACC (Electronically Signed) Final Date:15 August 2017 17:17
--- NOTE | 2017-08-15 18:30 | HHI.PR ---
Subjective Remarks Follow-up for sepsis, cellulitis of left lower extremity, bacteremia. Patient is doing well. However she becomes tearful because she wants to go home. No chest pain, shortness of breath, fever or chills. Objective Vitals Vital Signs Date Time Temp Pulse Resp B/P (MAP) Pulse Ox O2 Delivery O2 Flow Rate FiO2 08/15/17 17:24 95 21 08/15/17 12:14 95 21 08/15/17 12:00 97.8 82 17 136/66 (89) 95 08/15/17 08:00 97.7 84 17 135/66 (89) 95 08/15/17 04:09 Room Air 08/15/17 04:00 81 08/15/17 04:00 98.2 57 18 146/69 (94) 97 08/15/17 00:41 99.1 08/15/17 00:00 88 08/15/17 00:00 Room Air 08/14/17 23:05 101.2 80 18 116/52 (73) 93 08/14/17 20:00 Room Air 08/14/17 20:00 95 08/14/17 19:29 100.4 90 18 136/63 (87) 94 Automatic Cuff I/O 08/14/17 08/14/17 08/14/17 08/15/17 08/15/17 08/15/17 07:00 15:00 23:00 07:00 15:00 23:00 Intake Total 1415 ml 100 ml 570 ml 480 ml Output Total 750 ml Balance 1415 ml 100 ml 570 ml -270 ml Intake Oral 800 ml 520 ml 480 ml IV Total 615 ml 100 ml 50 ml Output Urine Total 750 ml # Voids 3 5 # Bowel Movements 1 Result Diagram: 08/14/17 1000 08/15/17 0423 Objective Remarks GENERAL: Alert, NAD. SKIN: Warm and dry. HEAD: Normocephalic. EYES: No scleral icterus. No injection or drainage. NECK: Supple, trachea midline. No JVD or lymphadenopathy. CARDIOVASCULAR: Regular rate and rhythm without murmurs, gallops, or rubs. RESPIRATORY: Breath sounds equal bilaterally. No accessory muscle use. GASTROINTESTINAL: Abdomen soft, non-tender, nondistended. MUSCULOSKELETAL: No cyanosis, or edema. Left lower extremity erythematous below -knee. No significant tenderness. No drainage. BACK: Nontender without obvious deformity. No CVA tenderness. Procedures None A/P Problem List: (1) Severe sepsis ICD Code: A41.9 - Sepsis, unspecified organism; R65.20 - Severe sepsis without septic shock (2) Left leg cellulitis ICD Code: L03.116 - Cellulitis of left lower limb (3) Dementia ICD Code: F03.90 - Unspecified dementia without behavioral disturbance (4) Skin abscess ICD Code: L02.91 - Cutaneous abscess, unspecified Assessment and Plan Ms. Briscoe is a 62 year old female with a history of dementia, previous left ankle surgery who is admitted to the hospital on 08/13/2017 due to left lower extremity cellulitis and severe sepsis. - Severe sepsis (WBC 15.0K, HR 92, RR 22, Temp 102.9, known infection cellulitis , Lactic acid 2.8). - Left lower extremity cellulitis - Right forearm skin abscess - Bacteremia with group a strep. -Wound culture shows MRSA as well as group A strep. MRSA is likely contamination. - Patient received Aztreonam, Vancomycin and Flagyl in the ED. - Infectious disease consulted. Patient is currently on ceftriaxone. - Lactic acid 1.0 --> 2.8 --> 1.4. Will check CBC on 08/16/2017. - Radiological studies reviewed. Ankle x-ray shows swelling. - Dementia - Will continue home medications - Aricept, Namenda. Full code. Lovenox. Victoria Haji DO Aug 15, 2017 6:30 pm
[2017-08-15] MEDS: DONEPEZIL HCL 23 MG TAB PO SCH (21:02)
[2017-08-15] MEDS: MEMANTINE HCL 5 MG TAB PO SCH (21:02)
[2017-08-16] VITALS: PULSE 74
[2017-08-16 00:41] VITALS: BP 141/71; PULSE 60; RESP 16; TEMP 98; O2SAT 96
[2017-08-16 03:52] VITALS: PULSE 78
[2017-08-16 04:55] VITALS: BP 138/68; PULSE 79; RESP 14; TEMP 98.3; O2SAT 99
[2017-08-16 06:18] LABS: BASOPHIL % 0.4 % (0.0-2.0); EOSINOPHIL # 0.2 TH/MM3 (0-0.4); EOSINOPHIL % 2.7 % (0.0-4.0); HEMATOCRIT 36.7 % (35.0-46.0); HEMOGLOBIN 12.3 GM/DL (11.6-15.3); LYMPH % 18.9 % (9.0-44.0); LYMPHOCYTE # 1.4 TH/MM3 (1.0-4.8); MEAN CELL VOLUME 86.9 FL (80.0-100.0); MEAN CORPUSCULAR HEMOGLOBIN 29.1 PG (27.0-34.0); MEAN CORPUSCULAR HGB CONC 33.4 % (32.0-36.0); MEAN PLATELET VOLUME 8.7 FL (7.0-11.0); MONO % 8.7 % (0.0-8.0); MONOCYTE # 0.6 TH/MM3 (0-0.9); NEUT % 69.3 % (16.0-70.0); PLATELET COUNT 150 TH/MM3 (150-450); RED BLOOD COUNT 4.23 MIL/MM3 (4.00-5.30); RED CELL DISTRIBUTION WIDTH 14.8 % (11.6-17.2); WHITE BLOOD COUNT 7.3 TH/MM3 (4.0-11.0)
[2017-08-16] MEDS: SODIUM CHLORIDE 0.9% FLUSH 10 ML FLUSH IV FLUSH SCH (07:08)
[2017-08-16 08:01] VITALS: BP 152/67; PULSE 67; RESP 18; TEMP 97.3; O2SAT 94
[2017-08-16] MEDS: CYANOCOBALAMIN 1,000 MCG TAB PO SCH (08:09)
[2017-08-16] MEDS: MULTIVITAMIN TAB PO SCH (08:09)
--- NOTE | 2017-08-16 10:05 | HHI.IDPN ---
Subjective Subjective Remarks Patient is a 62 y/o obese female, juvenal to the hospital for evaluation of worsening redness, pain and swelling in her LLE. She has had prior fracture of her ankle and had repair, done in another facility. She reportedly has been having problem with redness, swelling and pain in the last 2 months on and off. She has been to another facility and she was given antibiotics but never completed due to intolerance and some side effects. She was seen by her primary MD and wanted an US done. Patient however got worse and was taken her at [facility]. There was no mention of any other accompanying symptoms. Since presentation to [facility], she had fever up to 102+, WBC elevated, US showed no DVT. Xray of ankle showed the hardware, soft tissue swelling but no bony changes. 2 BC done in ED are now reported as growing Gm (+) cocci in pairs and chains. Infectious Disease consultation has been requested to evaluate patient with cellulitis LLE with hardware, and has bacteremia. Notes reviewed Afebrile Wants to go home, crying 2 BC with Group A Strep Fup BC negative Antibiotics Current Medications Medications (Trade) Dose Ordered Sig/Keyanna Route Start Time Stop Time Status Last Admin (NS Flush) 2 ml UNSCH PRN IV FLUSH 08/13/17 14:45 (NS Flush) 2 ml BID IV FLUSH 08/13/17 21:00 08/16/17 07:08 (Tylenol) 650 mg Q4H PRN PO 08/13/17 14:45 08/14/17 21:55 (Zofran Inj) 4 mg Q6H PRN IVP 08/13/17 14:45 (Lovenox Inj) 40 mg Q24H SQ 08/13/17 15:00 08/15/17 14:57 (Narcan Inj) 0.4 mg UNSCH PRN IV PUSH 08/13/17 14:45 (Milk Of Magnesia Liq) 30 ml Q12H PRN PO 08/13/17 14:45 (Senokot) 17.2 mg Q12H PRN PO 08/13/17 14:45 (Dulcolax Supp) 10 mg DAILY PRN RECTAL 08/13/17 14:45 (Lactulose Liq) 30 ml DAILY PRN PO 08/13/17 14:45 (Vitamin B12) 1,000 mcg DAILY PO 08/14/17 09:00 08/16/17 08:09 (Aricept) 23 mg HS PO 08/13/17 21:00 08/15/17 21:02 (Namenda) 5 mg HS PO 08/13/17 21:00 08/15/17 21:02 (Theragran) 1 tab DAILY PO 08/14/17 09:00 08/16/17 08:09 ([place] 7.5-325 Mg) 1 tab Q6H PRN PO 08/14/17 11:00 Ceftriaxone Sodium 2000 mg/ Sodium Chloride 100 ml @ 200 mls/hr Q24H IV 08/15/17 12:00 08/15/17 11:56 Current Medications Ancef Medications (Trade) Dose Ordered Sig/Keyanna Route Start Time Stop Time Status Last Admin (NS Flush) 2 ml UNSCH PRN IV FLUSH 08/13/17 14:45 (NS Flush) 2 ml BID IV FLUSH 08/13/17 21:00 08/15/17 07:27 (Tylenol) 650 mg Q4H PRN PO 08/13/17 14:45 08/14/17 21:55 (Zofran Inj) 4 mg Q6H PRN IVP 08/13/17 14:45 (Lovenox Inj) 40 mg Q24H SQ 08/13/17 15:00 08/14/17 15:01 (Narcan Inj) 0.4 mg UNSCH PRN IV PUSH 08/13/17 14:45 (Milk Of Magnesia Liq) 30 ml Q12H PRN PO 08/13/17 14:45 (Senokot) 17.2 mg Q12H PRN PO 08/13/17 14:45 (Dulcolax Supp) 10 mg DAILY PRN RECTAL 08/13/17 14:45 (Lactulose Liq) 30 ml DAILY PRN PO 08/13/17 14:45 (Vitamin B12) 1,000 mcg DAILY PO 08/14/17 09:00 08/15/17 08:24 (Aricept) 23 mg HS PO 08/13/17 21:00 08/14/17 21:55 (Namenda) 5 mg HS PO 08/13/17 21:00 08/14/17 21:55 (Theragran) 1 tab DAILY PO 08/14/17 09:00 08/15/17 08:24 Pharmacy Profile Note 0 ml @ 0 mls/hr UNSCH OTHER 08/13/17 18:30 ([place] 7.5-325 Mg) 1 tab Q6H PRN PO 08/14/17 11:00 Cefazolin Sodium/ Dextrose 50 ml @ 100 mls/hr Q8H IV 08/14/17 15:00 08/15/17 05:54 Vancomycin HCl 2000 mg/Sodium Chloride 520 ml @ 260 mls/hr Q18H IV 08/14/17 16:00 08/15/17 09:49 Miscellaneous Information SPECIFIC LAB TO BE EMIL... ONCE ONCE .XX 08/16/17 21:45 08/16/17 21:46 Lines PIV Past Medical History Dementia Left ankle fracture Past Surgical History Internal fixation of left ankle Carpal tunnel surgery Tonsillectomy. Allergies: Coded Allergies: codeine (Unverified Allergy, Severe, RASH, 08/13/17) sulfamethoxazole (Unverified Allergy, Severe, Itching, 08/13/17) ITCHING, REDNESS, VOICE CHANGES, LIP SWELLING trimethoprim (Unverified Allergy, Severe, Itching, 08/13/17) ITCHING, REDNESS, VOICE CHANGES, LIP SWELLING penicillin G (Unverified Allergy, Mild, RASH, 08/13/17) Objective . Vital Signs Date Time Temp Pulse Resp B/P (MAP) Pulse Ox O2 Delivery O2 Flow Rate FiO2 08/16/17 08:01 97.3 67 18 152/67 (95) 94 08/16/17 04:55 98.3 79 14 138/68 (91) 99 08/16/17 03:57 Room Air 08/16/17 03:52 78 08/16/17 00:41 98.0 60 16 141/71 (94) 96 08/16/17 00:00 Room Air 08/16/17 00:00 74 08/15/17 20:10 97.8 76 18 124/80 (95) 97 08/15/17 20:09 97.8 80 16 124/58 (80) 97 08/15/17 20:00 72 08/15/17 20:00 Room Air 08/15/17 17:24 95 21 08/15/17 16:10 97.3 78 17 117/56 (76) 97 08/15/17 15:35 90 08/15/17 12:14 95 21 08/15/17 12:00 97.8 82 17 136/66 (89) 95 08/15/17 11:56 82 . Laboratory Tests Test 08/16/17 05:20 White Blood Count 7.3 TH/MM3 Red Blood Count 4.23 MIL/MM3 Hemoglobin 12.3 GM/DL Hematocrit 36.7 % Mean Corpuscular Volume 86.9 FL Mean Corpuscular Hemoglobin 29.1 PG Mean Corpuscular Hemoglobin Concent 33.4 % Red Cell Distribution Width 14.8 % Platelet Count 150 TH/MM3 Mean Platelet Volume 8.7 FL Neutrophils (%) (Auto) 69.3 % Lymphocytes (%) (Auto) 18.9 % Monocytes (%) (Auto) 8.7 % Eosinophils (%) (Auto) 2.7 % Basophils (%) (Auto) 0.4 % Neutrophils # (Auto) 5.0 TH/MM3 Lymphocytes # (Auto) 1.4 TH/MM3 Monocytes # (Auto) 0.6 TH/MM3 Eosinophils # (Auto) 0.2 TH/MM3 Basophils # (Auto) 0.0 TH/MM3 CBC Comment DIFF FINAL Differential Comment Laboratory Tests Test 08/15/17 04:23 Creatinine 0.72 MG/DL Estimat Glomerular Filtration Rate 83 ML/MIN Microbiology Date/Time Source Procedure Growth Status 08/15/17 04:23 Blood Peripheral Aerobic Blood Culture Pending Resulted 08/15/17 04:23 Blood Peripheral Anaerobic Blood Culture - Final QNS - SEE AEROBE REPORT Resulted 08/14/17 14:30 Blood Peripheral Aerobic Blood Culture - Preliminary NO GROWTH IN 1 DAY Resulted 08/14/17 14:30 Blood Peripheral Anaerobic Blood Culture - Preliminary NO GROWTH IN 1 DAY Resulted 08/14/17 14:25 Blood Peripheral Aerobic Blood Culture - Preliminary NO GROWTH IN 1 DAY Resulted 08/14/17 14:25 Blood Peripheral Anaerobic Blood Culture - Preliminary NO GROWTH IN 1 DAY Resulted 08/13/17 13:12 Blood Peripheral Aerobic Blood Culture - Preliminary Group A Beta Strep Resulted 08/13/17 13:12 Anaerobic Blood Culture - Preliminary Group A Beta Strep Resulted 08/13/17 13:00 Blood Peripheral Aerobic Blood Culture - Preliminary NO GROWTH IN 2 DAYS Resulted 08/13/17 13:00 Anaerobic Blood Culture - Preliminary Group A Beta Strep Resulted 08/13/17 13:00 Wound Leg Gram Stain - Final Complete 08/13/17 13:00 Wound Culture - Final S. Aureus Mrsa Group A Beta Strep Complete Imaging Last Impressions Lower Extremity Ultrasound 08/13/17 1443 Signed Impressions: Service Date/Time: Sunday, August 13, 2017 15:16 - CONCLUSION: No evidence of DVT. No significant change compared to the prior study. Drew Echeverria MD Ankle X-Ray 08/13/17 1317 Signed Impressions: Service Date/Time: Sunday, August 13, 2017 13:26 - CONCLUSION: 1. Nonspecific soft tissue swelling around the ankle. 2. Evidence of previous internal fixation with hardware intact. 3. No evidence of bony erosion or destruction to indicate osteomyelitis. Drew Echeverria MD Chest X-Ray 08/13/17 1300 Signed Impressions: Service Date/Time: Sunday, August 13, 2017 13:17 - CONCLUSION: Normal examination. Yasmany Christianson MD Physical Exam GENERAL: awake and alert, NAD SKIN: Warm and dry. No generalized rash, no ecchymoses and no evidence of embolic lesions. HEAD: Atraumatic. Normocephalic. No temporal wasting, or tenderness. EYES: [place] conjunctiva. No petechia or hemorrhage. Pupils equal, round and reactive to light. Extraocular movements full and intact. No scleral icterus. No injection or drainage. EARS, NOSE AND THROAT: Nose without bleeding or purulent nasal discharge. No sinus tenderness. Mucous membranes pink and moist. No oral lesions noted. NECK: Trachea midline. Supple and not tender, no meningeal signs CARDIOVASCULAR: Regular rate and rhythm. Soft heart sounds. RESPIRATORY: Clear to auscultation. Breath sounds equal bilaterally. No rales , wheezing or rhonchi. Decreased at bases ABDOMEN: Soft, obese, non-tender, nondistended. Bowel sounds present and normoactive. No guarding. No rebound. EXTREMITIES: No clubbing, cyanosis. LLE - erythema minimal, edema better. No open wound. There is no pain with movement at ankle joint. She has healed incisions and no open wound noted. No calf tenderness. Well perfused and warm. NEUROLOGICAL: Awake and alert. Grossly non-focal PSYCHIATRIC: calm and cooperative. LINE: No evidence of infection Assessment & Plan Remarks IMPRESSION Sepsis with Group A Strep Cellulitis LLE, no open wound, incisions well healed, no pain in movement of ankle, no bony erosion on xray - she does have hardware but clinically does not seem to be involved, and surely has potential for seeding (+) wound C/S leg - no wound present, and this represents skin chelsea Dementia RECOMMENDATION Change to po Levaquin and give 14 days Clinically doing well from ID standpoint Will order CONG stocking to LLE OK for D/C if first dose Levaquin tolerated Shara Frey MD Aug 16, 2017 10:05
[2017-08-16] MEDS ORDERED: LEVOFLOXACIN 750 MG TAB PO SCH (11:00)
[2017-08-16] MEDS ORDERED: LEVA750T9 PO (12:05)
[2017-08-16] MEDS ORDERED: WALKER WHEELS/F1 MIS (12:07)
--- NOTE | 2017-08-16 12:07 | HHI.DS ---
Discharge Summary Admission Date Aug 13, 2017 at 2:44 pm Discharge Date: Aug 16, 2017 Admitting Diagnosis Left ankle cellulitis. (1) Severe sepsis ICD Code: A41.9 - Sepsis, unspecified organism; R65.20 - Severe sepsis without septic shock (2) Left leg cellulitis ICD Code: L03.116 - Cellulitis of left lower limb (3) Dementia ICD Code: F03.90 - Unspecified dementia without behavioral disturbance (4) Skin abscess ICD Code: L02.91 - Cutaneous abscess, unspecified Procedures None Brief History - From Admission History is obtained from patient's daughter who is also POA. Ms. Briscoe is a 62 year old female with a history of left ankle surgery, dementia who presented to the ED on 08/13/2017 due to erythema, swelling, pain that started getting worse since this morning. She underwent left ankle surgery with some hardware placement back in January 2017. She returned home after rehab. Approximately two months prior to this admission, she had some swelling and erythema of her left ankle. She went to an outside hospital where she received abx. However, she did not tolerate her abx well and thus her symptoms never really resolved. She went to PCP who recommended that an ultrasound study is done before considering abx. Patient's daughter does not know the result of the ultrasound study. However, this morning, patient's left ankle was more painful, erythematous which led to this admission. Patient is not able to participate in the interview in any meaningful way due to dementia. However, she denies any chest pain, cough, abdominal pain, SOB. She denies any changes in bowel or bladder habits. On arrival, BP 186/127, HR 92, RR 22, Temp 102.9F, Pulse ox 96% on room air. WBC 15.0K, Lactic acid 1.0 and repeat 2.8 and subsequently 1.4. Patient received Aztreonam, Vancomycin and Flagyl in the ED. Patient has allergy to PCN - however, extent of allergy is not known. CBC/BMP: 08/16/17 0520 08/15/17 0423 Significant Findings Laboratory Tests Test 08/13/17 13:12 08/13/17 18:49 08/13/17 21:23 08/14/17 06:14 White Blood Count 15.0 TH/MM3 (4.0-11.0) Neutrophils (%) (Auto) 83.2 % (16.0-70.0) Lymphocytes (%) (Auto) 8.3 % (9.0-44.0) Neutrophils # (Auto) 12.5 TH/MM3 (1.8-7.7) Monocytes # (Auto) 1.1 TH/MM3 (0-0.9) Prothrombin Time 9.7 SEC (9.8-11.6) Random Glucose 117 MG/DL (74-106) 122 MG/DL (74-106) Albumin 3.1 GM/DL (3.4-5.0) 2.5 GM/DL (3.4-5.0) Aspartate Amino Transf (AST/SGOT) 14 U/L (15-37) Estimat Glomerular Filtration Rate 72 ML/MIN (>89) 70 ML/MIN (>89) Lactic Acid Level 2.8 mmol/L (0.4-2.0) Total Protein 6.1 GM/DL (6.4-8.2) Calcium Level 8.3 MG/DL (8.5-10.1) Test 08/14/17 10:00 08/15/17 04:23 08/16/17 05:20 White Blood Count 17.2 TH/MM3 (4.0-11.0) Neutrophils (%) (Auto) 89.6 % (16.0-70.0) Lymphocytes (%) (Auto) 6.5 % (9.0-44.0) Neutrophils # (Auto) 15.4 TH/MM3 (1.8-7.7) Estimat Glomerular Filtration Rate 83 ML/MIN (>89) Monocytes (%) (Auto) 8.7 % (0.0-8.0) PE at Discharge GENERAL: Alert, NAD. SKIN: Warm and dry. HEAD: Normocephalic. EYES: No scleral icterus. No injection or drainage. NECK: Supple, trachea midline. No JVD or lymphadenopathy. CARDIOVASCULAR: Regular rate and rhythm without murmurs, gallops, or rubs. RESPIRATORY: Breath sounds equal bilaterally. No accessory muscle use. GASTROINTESTINAL: Abdomen soft, non-tender, nondistended. MUSCULOSKELETAL: No cyanosis, or edema. Left lower extremity erythematous below -knee. No significant tenderness. No drainage. BACK: Nontender without obvious deformity. No CVA tenderness. Pt update on day of discharge Patient is currently doing well. She reports no fever, chills. Left leg redness , swelling down. Hospital Course Ms. Briscoe is a 62 year old female with a history of dementia, previous left ankle surgery who is admitted to the hospital on 08/13/2017 due to left lower extremity cellulitis and severe sepsis. - Severe sepsis (WBC 15.0K, HR 92, RR 22, Temp 102.9, known infection cellulitis , Lactic acid 2.8). - Left lower extremity cellulitis - Right forearm skin abscess - Bacteremia with group a strep. -Wound culture shows MRSA as well as group A strep. MRSA is likely contamination. - Patient received Aztreonam, Vancomycin and Flagyl in the ED. - Infectious disease consulted. Patient received Ceftriaxone in the hospital. Levaquin PO recommended by Infectious Disease on discharge. - Lactic acid 1.0 --> 2.8 --> 1.4. Will check CBC on 08/16/2017. - Radiological studies reviewed. Ankle x-ray shows swelling. - Dementia - Will continue home medications - Aricept, Namenda. Pt Condition on Discharge: Good Discharge Disposition: Disch w/ Home Health Serv Discharge Time: <= 30 minutes Discharge Instructions DIET: Follow Instructions for: Heart Healthy Diet Activities you can perform: Regular-No Restrictions Victoria Haji DO Aug 16, 2017 12:07
--- NOTE | 2017-08-16 12:08 | HHI.FF ---
Face to Face Verification Diagnosis: (1) Dementia (2) Left leg cellulitis Physical Therapy Order: Evaluate and Treat, Improve ambulation, Strength and gait training Home Health Nursing Order: Medical education Signs/symptoms of disease process Nursing assessment with vital signs I have seen patient Zenaida Briscoe on 08/16/17. My clinical findings support the need for the requested home health care services because: Ltd mobility - disease progression Deconditioned w/ increased weakness Med compliance is questionable Limited ability to care for self Need for psychosocial assistance Impaired cognition/judgement High risk of falls Infection w/ risk of complications I certify that my clinical findings support that this patient is homebound because: Unsteady gait/balance Unsafe to leave home unassisted Need for psychosocial assistance Unable to use public transportation Victoria Haji DO Aug 16, 2017 12:08 pm
[2017-08-16 12:19] VITALS: BP 109/53; PULSE 75; RESP 17; TEMP 97.6; O2SAT 98
[2017-08-16] MEDS ORDERED: PHARMACY ORDERED LAB ONE (21:45)
== END 2017-08-16 14:33 | disposition home health service (06) | DRG 872 ==
LOC: NEPC 12:42 → NEDA 14:44 → N04B 16:00
PROVIDERS: ADMIT Hospitalist; ATTEND Hospitalist
DX: A40.9 Streptococcal sepsis, unspecified (principal); F03.90 Unspecified dementia, unspecified severity, without behavioral disturbance, psychotic disturbance, mood disturbance, and anxiety; Z68.43 Body mass index [BMI] 50.0-59.9, adult; L03.116 Cellulitis of left lower limb; L02.413 Cutaneous abscess of right upper limb; R65.20 Severe sepsis without septic shock; E66.01 Morbid (severe) obesity due to excess calories; K21.9 Gastro-esophageal reflux disease without esophagitis; G47.30 Sleep apnea, unspecified; Z87.891 Personal history of nicotine dependence; Z88.2 Allergy status to sulfonamides; Z88.5 Allergy status to narcotic agent; Z88.0 Allergy status to penicillin
CPT/HCPCS: 71045; 73610; 80053; 80202; 82565; 83605; 85025; 85610; 85730; 86403; 87040; 87070; 87147; 87186; 87205; 93005; 93306; 93971; 96361; 96365; 96375; J0690; J0696; J1650; J2060; J3370; J7030; J7040; J7050; P9612